=== PATIENT | male | born 1985 | race Two or more races ===

== ENCOUNTER 2018-06-02 12:24 | Emergency (ER) | payer SELFPAY ==
[~2018-06-02] VITALS: Ht 177.8 cm; Wt 83.9 kg
[2018-06-02 12:47] VITALS: BP 129/77
[2018-06-02] MEDS ORDERED: NKM (12:49)
--- NOTE | 2018-06-02 13:07 | NUR ---
ED Nurse Note: Pt came in due to abd pain with N/V/D started today. Pt in severe pain. Pt is AAO x4, ambulates with unlabored breathing.
[2018-06-02] MEDS ORDERED: Isovue-300 100ml vial INJ PRN (13:15)
[2018-06-02] MEDS ORDERED: Morphine Sulfate 4mg/ml Inj (IV/IM USE ONLY) IVP ONE (13:15)
--- NOTE | 2018-06-02 13:20 | NUR ---
ED Nurse Note: Oral contrast taken by patient.
[2018-06-02 13:21] LABS: APPEARANCE,URINE CLEAR; BILIRUBIN, URINE NEGATIVE (NEGATIVE); COLOR,URINE PALE YELLOW; GLUCOSE, URINE (UA) NEGATIVE (NEGATIVE); KETONES,URINE NEGATIVE (NEGATIVE); LEUKOCYTE ESTERASE ,URINE NEGATIVE (NEGATIVE); NITRITE,URINE NEGATIVE (NEGATIVE); PH,URINE 5 (4.5-8.0); PROTEIN,URINE NEGATIVE (NEGATIVE); UROBILINOGEN,URINE NORMAL MG/DL (0.0-1.0)
--- NOTE | 2018-06-02 13:45 | NUR ---
HAND-OFF: Report given to Shivani RUIZ.
[2018-06-02 13:52] LABS: BASOPHILS % (AUTO) 0.7 % (0.0-2.0); EOSINOPHILS % (AUTO) 0.2 % (0.0-3.0); HEMATOCRIT 50.2 % (42.0-52.0); HEMOGLOBIN 16.8 G/DL (14.2-18.0); LYMPHOCYTES % (AUTO) 20.9 % (20.0-45.0); MEAN CORPUSCULAR VOLUME 88 FL (80-99); MONOCYTES % (AUTO) 6.4 % (1.0-10.0); NEUTROPHILS % (AUTO) 71.8 % (45.0-75.0); PLATELET COUNT 369 K/UL (150-450); RED CELL DISTRIBUTION WIDTH 11.3 % (11.6-14.8); WHITE BLOOD COUNT 10.4 K/UL (4.8-10.8)
[2018-06-02 14:00] LABS: ANION GAP 11 mmol/L (5-15); BLOOD UREA NITROGEN 17 mg/dL (7-18); CALCIUM 9.2 MG/DL (8.5-10.1); CARBON DIOXIDE 29 MMOL/L (21-32); CHLORIDE 104 MMOL/L (98-107); CREATININE 1.3 MG/DL (0.55-1.30); POTASSIUM 3.4 MMOL/L (3.5-5.1); SODIUM 144 MMOL/L (136-145)
[2018-06-02 14:04] LABS: ALANINE AMINOTRANSFERASE 42 U/L (12-78); ALBUMIN 4.5 G/DL (3.4-5.0); ALBUMIN/GLOBULIN RATIO 1.2 (1.0-2.7); ALKALINE PHOSPHATASE 79 U/L (46-116); ASPARTATE AMINO TRANSFERASE 23 U/L (15-37); BILIRUBIN,TOTAL 0.2 MG/DL (0.2-1.0)
--- NOTE | 2018-06-02 14:19 | Emergency Room Report ---
History of Present Illness General Chief Complaint: Abdominal Pain Source: Patient Present Illness HPI 32-year-old male patient presents the ER complaining of right lower quadrant and right-sided abdominal and flank pain for the past few hours. Reports pain with urinating. Denies blood in urine. Denies fever, chest pain, shortness of breath. Reports one episode of vomiting. Denies blood in vomit. Denies recent travel. Denies diarrhea. Denies constipation. Reports able to pass gas. Denies acute injury or trauma. Denies penile discharge. Allergies: Coded Allergies: No Known Allergies (Unverified , 06/02/18) Patient History Past Medical History: see triage record Reviewed Nursing Documentation: PMH: Agreed; PSxH: Agreed Nursing Documentation-PMH Past Medical History: No Stated History Review of Systems All Other Systems: negative except mentioned in HPI Physical Exam Vital Signs Date Time Temp Pulse Resp B/P (MAP) Pulse Ox O2 Delivery O2 Flow Rate FiO2 06/02/18 12:47 97.5 64 16 129/77 98 Room Air Sp02 EP Interpretation: reviewed, normal General Appearance: well appearing, no apparent distress, alert, GCS 15, non- toxic Head: normocephalic, atraumatic Eyes: bilateral eye normal inspection, bilateral eye PERRL ENT: hearing grossly normal, normal pharynx, no angioedema, normal voice, uvula midline, moist mucus membranes Neck: full range of motion Respiratory: lungs clear, normal breath sounds, no rhonchi, no respiratory distress, no accessory muscle use, no wheezing, speaking full sentences Cardiovascular #1: regular rate, rhythm, no edema Gastrointestinal: soft, no mass, non-distended, no rebound, guarding, tenderness - Right lower quadrant Genitourinary: CVA tenderness (R) Musculoskeletal: back normal, digits/nails normal, gait/station normal, normal range of motion, non-tender Neurologic: alert, oriented x3, responsive, motor strength/tone normal, sensory intact Psychiatric: mood/affect normal Skin: no rash Medical Decision Making PA Attestation Dr. Caceres is my supervising Physician whom patient management has been discussed with. Diagnostic Impression: Primary Impression: Kidney stone Additional Impression: Hydroureteronephrosis ER Course Pt. presents to the ED c/o abdominal pain and vomiting. Ddx considered but are not limited to UTI, kidney stones, hydronephrosis, appendicitis, diverticulitis, constipation. Begin abdominal pain workup. Provided patient with pain medication. Vital signs: are WNL, pt. is afebrile ORDERS: CBC, CMP, Lipase, UA, CT abdomen pelvis, Zofran, and medication. ER COURSE: CBC and CMP Lipase WNL UA unremarkable, 2-4 RBCs likely due to kidney stone. Discuss results with patient CT abdomen and pelvis Mild right hydroureteronephrosis with periureteral inflammation, delayed enhancement of the right kidney indicative of obstruction likely on the basis of a recently passed 1 to 2 mm stone, residing on the bladder side of the UVJ. Discuss results with the patient. Provided patient with copy of results. Instructed patient to followup with PCP and discuss results of report with patient, discuss need for further treatment and referral. Patient okay for outpatient treatment. Informed patient likely to pass stone on his own. Drink plenty of fluids. ER precautions given, return to ER for new or worsening of symptoms including but not limited to worsening of pain, intractable vomiting, chest pain, shortness of breath, hematuria. Patient reports relief of pain symptoms with medication in ER. Discuss with RADHA Chávez for outpatient evaluation and treatment. DISCHARGE: Rx provided for [facility] for pain symptoms. Does may cause drowsiness, do not take prior to drinking, driving, operating heavy machinery. At this time pt. is stable for d/c to home. Patient resting comfortably, in no acute distress, nontoxic appearing, talking without difficulty. Rx provided to patient. Patient to take medications as instructed Will provide with patient care instructions and any necessary prescriptions. Care plan and follow-up instructions provided. Patient instructed to follow-up with primary care provider in 3 - 5 days. Patient questions asked and answered. Patient reports understanding and agreement to treatment plan. ER precautions given. Patient instructed to return to ER immediately for any new or worsening of symptoms including but not limited to increasing SOB, persistent fever, worsening of pain symptoms, intractable vomiting, blood in stool, urine, and/or emesis. - Please note that this Emergency Department Report was dictated using [email or web address] teacher technology software, occasionally this can lead to erroneous entry secondary to interpretation by the dictation equipment. Labs Test 06/02/18 12:54 06/02/18 13:40 Urine Color Pale yellow Urine Appearance Clear Urine pH 5 (4.5-8.0) Urine Specific [place] 1.030 (1.005-1.035) Urine Protein Negative (NEGATIVE) Urine Glucose (UA) Negative (NEGATIVE) Urine Ketones Negative (NEGATIVE) Urine Blood 2+ (NEGATIVE) Urine Nitrite Negative (NEGATIVE) Urine Bilirubin Negative (NEGATIVE) Urine Urobilinogen Normal MG/DL (0.0-1.0) Urine Leukocyte Esterase Negative (NEGATIVE) Urine RBC 2-4 /HPF (0 - 0) Urine WBC 0-2 /HPF (0 - 0) Urine Squamous Epithelial Cells Occasional /LPF Urine Bacteria Occasional /HPF (NONE) White Blood Count 10.4 K/UL (4.8-10.8) Red Blood Count 5.70 M/UL (4.70-6.10) Hemoglobin 16.8 G/DL (14.2-18.0) Hematocrit 50.2 % (42.0-52.0) Mean Corpuscular Volume 88 FL (80-99) Mean Corpuscular Hemoglobin 29.4 PG (27.0-31.0) Mean Corpuscular Hemoglobin Concent 33.4 G/DL (32.0-36.0) Red Cell Distribution Width 11.3 % (11.6-14.8) Platelet Count 369 K/UL (150-450) Mean Platelet Volume 6.7 FL (6.5-10.1) Neutrophils (%) (Auto) 71.8 % (45.0-75.0) Lymphocytes (%) (Auto) 20.9 % (20.0-45.0) Monocytes (%) (Auto) 6.4 % (1.0-10.0) Eosinophils (%) (Auto) 0.2 % (0.0-3.0) Basophils (%) (Auto) 0.7 % (0.0-2.0) Sodium Level 144 MMOL/L (136-145) Potassium Level 3.4 MMOL/L (3.5-5.1) Chloride Level 104 MMOL/L (98-107) Carbon Dioxide Level 29 MMOL/L (21-32) Anion Gap 11 mmol/L (5-15) Blood Urea Nitrogen 17 mg/dL (7-18) Creatinine 1.3 MG/DL (0.55-1.30) Estimat Glomerular Filtration Rate > 60 mL/min (>60) Glucose Level 149 MG/DL (74-106) Calcium Level 9.2 MG/DL (8.5-10.1) Total Bilirubin 0.2 MG/DL (0.2-1.0) Aspartate Amino Transf (AST/SGOT) 23 U/L (15-37) Alanine Aminotransferase (ALT/SGPT) 42 U/L (12-78) Alkaline Phosphatase 79 U/L (46-116) Total Protein 8.1 G/DL (6.4-8.2) Albumin 4.5 G/DL (3.4-5.0) Globulin 3.6 g/dL Albumin/Globulin Ratio 1.2 (1.0-2.7) Lipase 112 U/L (73-393) CT/MRI/US Diagnostic Results CT/MRI/US Diagnostic Results : Imaging Test Ordered: CT abdomen pelvis Impression Mild right hydroureteronephrosis with periureteral inflammation, delayed enhancement of the right kidney indicative of obstruction likely on the basis of a recently passed 1 to 2 mm stone, residing on the bladder side of the UVJ. Last Vital Signs Date Time Temp Pulse Resp B/P (MAP) Pulse Ox O2 Delivery O2 Flow Rate FiO2 06/02/18 12:57 64 16 Room Air 06/02/18 12:47 97.5 129/77 98 Status: improved Disposition: HOME, SELF-CARE Condition: Stable Scripts Acetaminophen* (TYLENOL EXTRA STRENGTH*) 500 Mg Tablet 500 MG ORAL Q8H PRN for Prn Headache/Temp > 101, #30 TAB 0 Refills Prov: Mario Tripathi 06/02/18 Hydrocodone Bit/Acetaminophen 5-325* (NORCO 5-325*) 1 Each Tablet 1 TAB ORAL Q6H PRN for For Pain, #10 TAB 0 Refills Prov: Mario Tripathi 06/02/18 Referrals: NOT CHOSEN IPA/,REFERRING (PCP) Patient Instructions: Hydronephrosis, Kidney Stones, [id number] Additional Instructions: Followup with primary care provider in 3 -5 days. Discuss referral to specialist. Attempt to strain urine to collect stone and take to PCP for further oracle database analyst. Take medications as directed. May cause drowsiness, do not take prior to drinking, driving, operating heavy machinery. Take Tylenol following completion of Hammond prescription. Patient questions asked and answered. ER precautions given, patient instructed to return to ER immediately for any new or worsening of symptoms including but not limited to worsening of pain, intractable vomiting, chest pain, shortness of breath, hematuria. Mario Tripathi Jun 02, 2018 14:19
--- NOTE | 2018-06-02 14:27 | NUR ---
ED Nurse Note: Notified [facility] for pt.'s request of pain med
--- NOTE | 2018-06-02 14:43 | NUR ---
ED Nurse Note: PT. TAKEN DOWN TO CT
[2018-06-02] MEDS ORDERED: Ketorolac 30mg Inj IM ONE (14:45)
--- NOTE | 2018-06-02 15:50 | Diagnostic Imaging Report ---
Indication: Abdominal pain Technique: Continuous helical transaxial imaging of the abdomen and pelvis was obtained from the lung bases to the pubic symphysis during intravenous contrast administration. Coronal 2-D reformats were also obtained. Study obtained in a Siemens sensation [address] Automatic Exposure Control was utilized. Total Dose length Product (DLP): 721.[address] Dose Index Volume (CTDIvol): 14.12 mGy Comparison: None Findings: There is differential enhancement of the kidneys with delayed enhancement of the right kidney. This is associated with mild right hydroureteronephrosis and periureteral stranding. There is a 1 to 2 mm calculus just beyond the right UVJ present. Findings are consistent with a recently passed stone with residual dilatation and inflammatory changes. The bladder is otherwise unremarkable. The left kidney is unremarkable. No other stones are identified. Gallbladder is unremarkable. Small hiatal hernia noted. The pancreas, spleen and adrenal glands appear normal. Appendix is normal. IMPRESSION: Mild right hydroureteronephrosis with periureteral inflammation, delayed enhancement of the right kidney indicative of obstruction likely on the basis of a recently passed 1 to 2 mm stone, residing on the bladder side of the UVJ. The CT scanner at [facility] is accredited by the [employer] and the scans are performed using dose optimization techniques as appropriate to a performed exam including Automatic Exposure control.
[2018-06-02] MEDS ORDERED: TYLENOL EXTRA500 MG ORAL (16:23)
[2018-06-02] MEDS ORDERED: NORCO 5-325 TA1 EACH ORAL (16:23)
[2018-06-02 16:40] VITALS: BP 130/85
--- NOTE | 2018-06-02 16:41 | NUR ---
ED Nurse Note: Pt. AAOx4. ambulatory. Left with steady gait. Pt left with all his belongings. Pt. education done regarding d/c papers and presciptions. Pt. verbalized the understanding of the teaching.ID armband removed. VSS. IV access removed
== END 2018-06-02 16:30 | disposition home or self-care (01) ==
LOC: EMR 13:15
DX: N13.2 Hydronephrosis with renal and ureteral calculous obstruction (principal)
CPT/HCPCS: 36415; 74177; 80053; 81003; 83690; 85025; 96361; 96372; 96374; 96375; 99284; J1885; J2270; J2405; Q9967